=== PATIENT | female | born 1995 | race Caucasian/White ===

== ENCOUNTER 2025-04-18 05:09 | Emergency (ER) | payer MEDICAID ==
[~2025-04-18] VITALS: Ht 172.7 cm; Wt 112.0 kg
[2025-04-18] MEDS ORDERED: ONDANSETRON HCL/PF 4 MG/2 ML VIAL ONE (05:38)
[2025-04-18] MEDS: IV NS 0.9% 1,000 ML BAG IV ONE (05:52)
[2025-04-18 05:53] LABS: PLATELET COUNT (AUTO) 282 K/uL (150-450); RED BLOOD CELL COUNT(AUTO) 4.88 MIL/uL (4.0-5.2); RED CELL DISTRIBUTION WIDTH 15.7 % (11.5-15.0); WHITE BLOOD COUNT (AUTO) 7.7 K/uL (4.3-11.0)
[2025-04-18] MEDS: ONDANSETRON HCL/PF 4 MG/2 ML VIAL IVP ONE (05:53)
[2025-04-18 05:59] LABS: APPEARANCE,URINE CLEAR (CLEAR); BLOOD, URINE NEGATIVE Ery/uL (NEGATIVE); LEUKOCYTE ESTERASE ,URINE NEGATIVE (NEGATIVE); NITRITE, URINE NEGATIVE (NEGATIVE); UGLUCOSE NEGATIVE (NEGATIVE)
[2025-04-18 05:59] LABS: CALCIUM, SERUM 8.7 mg/dL (8.5-10.1); CREATININE 0.6 mg/dL (0.6-1.3); SODIUM SERUM 141.0 mmol/L (136-145); UREA NITROGEN, BLOOD 18.0 mg/dL (7-18)
[2025-04-18 06:00] LABS: PREGNANCY TEST URINE QUAL NEGATIVE (NEGATIVE)
[2025-04-18 06:05] LABS: ASPARTATE AMINOTRANSFERASE 17.0 U/L (15-37); TOTAL PROTEIN, SERUM 7.5 g/dL (6.4-8.2)
[2025-04-18] MEDS ORDERED: MECL-159 PO (06:16)
[2025-04-18 06:45] VITALS: BP 114/86; TEMP 98.3; O2SAT 97
== END 2025-04-18 06:47 | disposition home or self-care (01) ==
LOC: ER 05:14
DX: R42 Dizziness and giddiness (principal); R07.89 Other chest pain; F41.9 Anxiety disorder, unspecified; I45.10 Unspecified right bundle-branch block; J45.909 Unspecified asthma, uncomplicated; Z88.5 Allergy status to narcotic agent
CPT/HCPCS: 99284; 96374; 96361; 93005; 85025; 80048; 83690; 80076; 84703; 81003; 36415; J2405; J7030